=== PATIENT | female | born 1960 | race Caucasian/White ===

== ENCOUNTER → 2020-02-20 09:39 | Outpatient (CLI) | payer OTHER, SELFPAY ==
--- NOTE | 2020-02-20 09:44 | DI.MG.S_ITS ---
BILATERAL DIGITAL DIAGNOSTIC MAMMOGRAM 3D/2D: 02/20/2020 CLINICAL: Short follow up per prior study, due for bilateral mammogram. Family history of breast cancer. Comparison is made to exams dated: 09/07/2018 mammogram, 08/22/2018 mammogram, 05/02/2013 mammogram, 09/07/2018 ultrasound, 04/19/2019 ultrasound - [facility], and 02/20/2020 ultrasound - [facility]. The tissue of both breasts is heterogeneously dense. This may lower the sensitivity of mammography. There is a stable oval equal density asymmetry in the right breast anterior depth medial region seen on the craniocaudal view only. No other significant masses, calcifications, or other findings are seen in either breast. IMPRESSION: INCOMPLETE: NEEDS ADDITIONAL IMAGING EVALUATION The stable oval equal density asymmetry in the right breast is indeterminate. A targeted ultrasound is recommended and will immediately follow. This exam was interpreted at Station ID: [id number]. NOTE: For mammograms, a report in lay terms will be sent to the patient. Approximately 15% of breast malignancies will not be visualized mammographically. In the management of a palpable breast mass, a negative mammogram must not discourage biopsy of a clinically suspicious lesion. Electronically Signed By: Sterling Rhodes M.D. slc/:02/20/2020 10:58:55 ACR BI-RADS Category 0: Incomplete [id number]
--- NOTE | 2020-02-20 09:45 | DI.US.S_ITS ---
ULTRASOUND OF RIGHT BREAST: 02/20/2020 CLINICAL: 6 month follow-up of cysts. Comparison is made to exams dated: 02/20/2020 mammogram - [facility], 04/19/2019 ultrasound, 09/07/2018 ultrasound, 09/07/2018 mammogram, 08/22/2018 mammogram, and 05/02/2013 mammogram - [facility]. Color flow and real-time ultrasound of the right breast were performed. [place] scale images of the real-time examination were reviewed. There is a stable 0.4 cm x 0.5 cm x 0.2 cm oval cyst with a septated internal wall in the right breast at 4 o'clock anterior depth 5 cm from the nipple. This oval cyst is hypoechoic with a well-defined boundary. This likely correlates with mammography findings. Color flow imaging demonstrates that there is no vascularity present. This previously measured 0.5 x 0.2 x 0.4 cm on 09/07/2018. IMPRESSION: PROBABLY BENIGN Stable 0.5 cm oval cyst in the right breast is consistent with a complicated cyst or cluster of microcysts and is probably benign. A follow-up mammogram and an ultrasound in 6 months is recommended to demonstrate long-term stability. This exam was interpreted at Station ID: [id number]. Electronically Signed By: Sterling Rhodes M.D. [facility] [place]/:02/20/2020 11:04:14 letter sent: Followup Recommended Ultrasound BI-RADS: 3 Probably benign
== END ==
PROVIDERS: PCP Registered Nurse Diabetes Educator; Referring Provider Registered Nurse Diabetes Educator; Visit Provider Registered Nurse Diabetes Educator
DX: R92.8 Other abnormal and inconclusive findings on diagnostic imaging of breast (principal); N60.01 Solitary cyst of right breast; Z80.3 Family history of malignant neoplasm of breast
CPT/HCPCS: 76642; 77066; G0279

== ENCOUNTER → 2021-02-03 09:24 | Outpatient (CLI) | payer OTHER, SELFPAY ==
--- NOTE | 2021-02-03 09:27 | DI.MG.S_ITS ---
BILATERAL DIGITAL DIAGNOSTIC MAMMOGRAM 3D/2D: 02/03/2021 CLINICAL: Short term follow up of the right breast, due for bilateral imaging. Right breast pain. Comparison is made to exams dated: 02/20/2020 mammogram - [facility], 09/07/2018 mammogram, and 08/22/2018 mammogram - [facility]. The tissue of both breasts is heterogeneously dense. This may lower the sensitivity of mammography. There is a stable benign asymmetry in the right breast anterior depth medial region seen on the craniocaudal view only. No other significant masses, calcifications, or other findings are seen in either breast. IMPRESSION: BENIGN There is no mammographic evidence of malignancy. Return to annual mammogram screening schedule is recommended. This exam was interpreted at Station ID: [id number]. NOTE: For mammograms, a report in lay terms will be sent to the patient. Approximately 15% of breast malignancies will not be visualized mammographically. In the management of a palpable breast mass, a negative mammogram must not discourage biopsy of a clinically suspicious lesion. Electronically Signed By: Rigoberto Gutierrez M.D., jr/ramila:02/03/2021 10:13:49 letter sent: Normal Exam ACR BI-RADS Category 2: Benign Finding(s) 3342F
== END ==
PROVIDERS: PCP Student in an Organized Health Care Education/Training Program; Referring Provider Student in an Organized Health Care Education/Training Program; Visit Provider Student in an Organized Health Care Education/Training Program
DX: R92.8 Other abnormal and inconclusive findings on diagnostic imaging of breast (principal); N64.4 Mastodynia
CPT/HCPCS: 77066; G0279